=== PATIENT | male | born 1955 | race Caucasian/White ===

== ENCOUNTER 2018-09-08 08:06 | Emergency (ER) | payer BC ==
[~2018-09-08] VITALS: Ht 175.3 cm; Wt 109.2 kg
[2018-09-08] MEDS ORDERED: DILTIAZEM 5 MG/ML, 5ML ONE (08:34)
[2018-09-08 08:57] LABS: BASOPHILS # (AUTO) 0.02 x10^3/uL (0-0.1); BASOPHILS % (AUTO) 0 % (0-1); EOSINOPHILS # (AUTO) 0.02 x10^3/uL (0-0.4); EOSINOPHILS % (AUTO) 0 % (1-7); LYMPHOCYTES # (AUTO) 0.81 x10^3/uL (1-3.4); LYMPHOCYTES % (AUTO) 6 % (22-44); MD NO; MEAN CORPUSCULAR HEMOGLOBIN 29.7 pg (27.5-34.5); MEAN CORPUSCULAR HGB CONC 33.5 g/dL (33.2-36.2); MEAN CORPUSCULAR VOLUME 88.6 fL (81-97); MEAN PLATELET VOLUME 8.4 fL (7.4-10.4); MONOCYTES # (AUTO) 1.01 x10^3/uL (0.2-0.8); MONOCYTES % (AUTO) 8 % (2-9); NEUTROPHILS # (AUTO) 10.93 x10^3/uL (1.8-6.8); NEUTROPHILS % (AUTO) 86 % (42-75); PLATELET COUNT 291 x10^3/uL (130-400); RED BLOOD COUNT 4.64 x10^6/uL (4.38-5.82); RED CELL DISTRIBUTION WIDTH 14.2 % (9.4-14.8)
[2018-09-08] MEDS ORDERED: SODIUM CHLORIDE 0.9% 1,000ML IVBOLUS ONE (09:00)
[2018-09-08] MEDS ORDERED: DILTIAZEM 5 MG/ML, 5ML IV ONE (09:00)
[2018-09-08] MEDS ORDERED: PROPOFOL 10 MG/ML, 20ML ONE (09:05)
--- NOTE | 2018-09-08 09:08 | NUR ---
PT C/O PALPITATIONS. IV ACCESS WAS OBTAINED AND DILTIAZEM GIVEN ALONG WITH NS 1 LITER BOLUS. STILL A-FIB AT RATE OF 110-145. PER DR. ELAM , PT TO BE CARDIOVERTED. FELIPE RIVAS AT BEDSIDE FOR CONVERSION.
[2018-09-08 09:09] LABS: ALANINE AMINOTRANSFERASE 25 U/L (12-78); ALBUMIN 4.1 g/dL (3.4-5.0); ANION GAP 9 mmol/L (5-15); CALCIUM 8.9 mg/dL (8.5-10.1); CHLORIDE 105 mmol/L (98-107)
[2018-09-08 09:14] LABS: ALKALINE PHOSPHATASE 86 U/L (45-117); CREATININE 1.38 mg/dL (0.7-1.3); TOTAL PROTEIN 7.6 g/dL (6.4-8.2)
[2018-09-08 09:25] LABS: INTERNATIONAL NORMALIZED RATIO 1.12 (0.93-1.1); PROTHROMBIN TIME 11.8 Seconds (9.6-11.5)
[2018-09-08] MEDS ORDERED: PROPOFOL 10 MG/ML, 20ML IVPush ONE (09:30)
[2018-09-08 10:05] VITALS: BP 118/64
[2018-09-08 10:06] LABS: FREE T4 (FREE THYROXINE) 1.35 ng/dL (0.76-1.46)
--- NOTE | 2018-09-08 10:32 | NUR ---
PT WAS CONVERTED TO SINUS RHYTHM, HR 79. PT DENIES PAIN. VSS. PT IS ALERT AND ORIENTED , CALM AND COOPERATIVE AT DISCHARGE. TAXI VOUCHER GIVEN FOR TRANSPORT FROM ED. PT VERBALIZED UNDERSTANDING OF D/C INSTRUCTIONS.
== END 2018-09-08 10:35 | disposition home or self-care (01) ==
LOC: ED 10:31
DX: I48.0 Paroxysmal atrial fibrillation (principal); I10 Essential (primary) hypertension
CPT/HCPCS: 36415; 71045; 80053; 84439; 84443; 85025; 85610; 85730; 92960; 93005; 96374; 99152; 99291; J7030